=== PATIENT | female | born 1985 | race Hispanic/Latino ===

== ENCOUNTER 2018-08-12 13:30 | Emergency (ER) | payer MEDICAID ==
[2018-08-12 13:57] VITALS: BMI 37.8
[2018-08-12 14:02] VITALS: RESP 18; TEMP 98.3
[2018-08-12] MEDS ORDERED: Sodium Chloride 0.9% 1,000 ML IV STA (14:51)
[2018-08-12] MEDS ORDERED: Albuterol 0.083% Inhal Sol (2.5 mg/3 mL) UD INH STA (14:53)
[2018-08-12] MEDS ORDERED: DiphenhydrAMINE 50 mg/ml Inj IVP STA (14:54)
[2018-08-12 15:52] VITALS: BP 131/79; PULSE 86; O2SAT 99
--- NOTE | 2018-08-12 15:54 | ED PDOC ---
Arrival/HPI - General Chief Complaint: Allergic Reaction Historian: Patient - History of Present Illness Narrative History of Present Illness (Text): 08/12/18 14:50 32 year old female, whose past medical history includes chronic sinusitis, who was brought into the ER by EMS complaining of weakness, palpitations, and hives after getting the Haldol injection on 08/07/18, onset of symptoms noted as 2 days ago. Patient states she was on the pill before, but it made her feel groggy so she spoke to her Pyschiatrist and was given a shot of 100mg of Haldol. Patient reports she started feeling very weak about 2 days ago due to the shot and also started getting hives all over her arms, legs, stomach and back. Patient notes she did not take Benadryl for the hives since she was scared to become more tired and weak than she already was. Patient noted she was not able to swallow her spit yesterday, and this is the same thing that happens to her for her allergic reaction to strawberries. Patient notes she feels very tired, restless, lethargic, mild wheezes, and notes palpitations when laying down on her back. Patient denies any other complaints. Patient is a non-smoker. PMD: Debra Weber Time/Duration: Other (Pt notes symptoms started 2 days ago ) Symptom Onset: Sudden Symptom Course: Unchanged Activities at Onset: Light Past Medical History - Provider Review Nursing Documentation Reviewed: Yes - Past History Past History: No Previous - Infectious Disease Hx of Infectious Diseases: None - Tetanus Immunization Tetanus Immunization: Unknown - Past Medical History Past Medical History: Non-Contributing - Cardiac Hx Cardiac Disorders: No Hx Angina: No Hx Cardiac Arrhythmia: No Hx Circulatory Problems: No Hx Congestive Heart Failure: No Hx Heart Murmur: No Hx Heart Transplant: No Hx Hypertension: No Hx Internal Defibrillator: No Hx Mitral Valve Prolapse: No Hx Pacemaker: No Hx Peripheral Edema: No Hx Peripheral Vascular Disease: No - Pulmonary Hx Respiratory Disorders: No Hx Asthma: No Hx Bronchitis: No Hx Chronic Obstructive Pulmonary Disease (COPD): No Hx Emphysema: No Hx Pneumonia: No Hx Respiratory Aspiration: No Hx Respiratory Tract Infection: No Hx Sleep Apnea: No Hx Tuberculosis: No - Neurological Hx Neurological Disorder: No Hx Alzheimer's Disease: No HX Cerebrovascular Accident: No Hx Dizziness: No Hx Meningitis: No Hx Migraine: No Hx Parkinson's Disease: No Hx Seizures: No Hx Transient Ischemic Attacks (TIA): No - HEENT Hx HEENT Disorder: No Hx Blind: No Hx Cataracts: No Hx Deafness: No Hx Difficulty Chewing: No Hx Epistaxis: No Hx Glaucoma: No Hx Macular Degeneration: No - Renal Hx Renal Disorder: No Hx Dialysis: No Hx Kidney Stones: No Hx Neurogenic Bladder: No Hx Pyelonephritis: No Hx Renal Cancer: No Hx Renal Failure: No - Endocrine/Metabolic Hx Endocrine Disorders: No Hx Adrenal Cancer: No Hx Diabetes Insipidus: No Hx Diabetes Mellitus Type 1: No Hx Diabetes Mellitus Type 2: No Hx Hyperthyroidism: No Hx Hypothyroidism: No Hx Systemic Lupus Erythematosus: No - Hematological/Oncological Hx Blood Disorders: No Hx AIDS: No Hx Anemia: No Hx Cancer: No Hx Chemotherapy: No Hx Cirrhosis: No Hx Hemophilia: No Hx Hepatitis A: No Hx Hepatitis B: No Hx Hepatitis C: No Hx Metastasis: No Hx Shingles: No Hx Sickle Cell Disease: No Hx Unexplained Bleeding: No - Integumentary Hx Dermatological Disorder: No Hx Basal Cell Carcinoma: No Hx Eczema: No Hx Melanoma: No Hx Psoriasis: No Hx Squamous Cell Carcinoma: No - Musculoskeletal/Rheumatological Hx Musculoskeletal Disorders: No Hx Arthritis: No Hx Back Pain: No Hx Degenerative Joint Disease: No Hx Falls: No Hx Fractures: No Hx Gout: No Hx Herniated Disk: No Hx Myasthenia Gravis: No Hx Osteoarthritis: No Hx Osteomyelitis: No Hx Osteoporosis: No Hx Rhabdomyolysis: No Hx Spinal Stenosis: No Hx Unsteady Gait: No - Gastrointestinal Hx Gastrointestinal Disorders: No Hx Colostomy: No Hx Crohn's Disease: No Hx Diverticulitis: No Hx Gall Bladder Disease: No Hx Gastroesophageal Reflux: No Hx Gastrointestinal Ulcer: No Hx Ileostomy: No Hx Liver Failure: No Hx Pancreatitis: No HX Swallowing Problems: No - Genitourinary/Gynecological Hx Genitourinary Disorders: No Hx Hematuria: No Hx Incontinence: No Hx Prostate Problems: No Hx Sexually Transmitted Diseases: No Hx Urinary Tract Infection: No - Psychiatric Hx Psychophysiologic Disorder: No Hx Anxiety: Yes Hx Bipolar Disorder: Yes Hx Depression: Yes Hx Emotional Abuse: No Hx Hallucinations: No Hx Panic Disorder: No Hx Post Traumatic Stress Disorder: No Hx Psychosis: No Hx Physical Abuse: No Hx Schizophrenia: Yes Hx Sexual Abuse: No Hx Substance Use: No - Past Surgical History Past Surgical History: Non-Contributing - Surgical History Hx Amputation: No Hx Appendectomy: No Hx Cardiac Catheterization: No Hx Cholecystectomy: No Hx Coronary Stent: No Hx Gastric Bypass Surgery: No Hx Hysterectomy: No Hx Joint Replacement: No Hx Kidney Transplant: No Hx Liver Transplant: No Hx Mastectomy: No Hx Musculoskeletal Surgery: No Hx Open Heart Surgery: No Hx Orthopedic Surgery: No Hx Splenectomy: No Hx Valve Replacement: No - Anesthesia Hx Anesthesia: No Hx Anesthesia Reactions: No Hx Malignant Hyperthermia: No - Suicidal Assessment Feels Threatened In Home Enviroment: No Family/Social History - Physician Review Nursing Documentation Reviewed: Yes Family/Social History: No Known Family HX Smoking Status: Never Smoked Hx Alcohol Use: Yes Hx Substance Use: No Hx Substance Use Treatment: No Allergies/Home Meds Allergies/Adverse Reactions: Allergies strawberry Allergy (Intermediate, Verified 02/17/16 15:40) RASH divalproex sodium [From Depakote] Adverse Reaction (Verified 08/12/18 13:58) RASH pt gets violent Home Medications: Home Meds Medication Instructions Recorded Confirmed Risperidone [Risperdal] 2 mg PO DAILY 04/17/12 04/17/12 Trazodone Hydrochloride [Trazodone 150 mg PO HS 04/17/12 02/17/16 HCl] Divalproex [Depakote] 500 mg PO BID 09/03/12 09/03/12 Fluoxetine Hydrochloride [Prozac] 10 mg PO DAILY 09/03/12 02/17/16 Clonazepam [Klonopin] 0.5 mg PO PRN PRN 10/02/12 02/17/16 Review of Systems - Physician Review All systems were reviewed & negative as marked: Yes - Review of Systems Constitutional: Fatigue. absent: Normal Respiratory: Wheezing (pt notes mild wheezes). absent: Normal Cardiovascular: Palpitations. absent: Normal Skin: Other (Patient notes hives on arms, legs, back, and stomach). absent: Normal Physical Exam Vital Signs Reviewed: Yes Vital Signs Temp Pulse Resp BP Pulse Ox 08/12/18 14:01 98.3 F 101 H 18 133/83 98 Temperature: Afebrile Blood Pressure: Normal Pulse: Tachycardic Respiratory Rate: Normal Appearance: Positive for: Well-Appearing, Non-Toxic Pain Distress: None Mental Status: Positive for: Alert and Oriented X 3 - Systems Exam Head: Present: Atraumatic, Normocephalic Pupils: Present: PERRL Extroacular Muscles: Present: EOMI Conjunctiva: Present: Normal Mouth: Present: Moist Mucous Membranes Neck: Present: Normal Range of Motion Respiratory/Chest: No: Wheezes (No evidence of expiratory wheezes noted ) Cardiovascular: No: Tachycardic Abdomen: No: Tenderness, Distention, Peritoneal Signs Back: Present: Normal Inspection Upper Extremity: Present: Normal Inspection. No: Cyanosis, Edema Lower Extremity: Present: Normal Inspection. No: Edema Neurological: Present: Speech Normal (able to speak in full sentences ) Skin: Present: Warm, Dry, Normal Color, Other (No hives noted). No: Rashes Psychiatric: Present: Alert, Oriented x 3, Normal Insight, Normal Concentration Medical Decision Making ED Course and Treatment: 08/12/18 14:50 Impression: 32 year old female presents to the ED complaining of weakness, palpitations, and hives after getting the Haldol injection on 08/07/18. Plan: -- EKG -- Albuterol -- Benadryl -- SOLU-Medrol -- IV fluids Progress notes: - EKG Interpretation EKG Interpretation (Text): 08/12/2018 14:09 EKG shows NSR at [address] elevation with no prior comparison. Interpreted by me. Interpreted by ED Physician: Yes Type: 12 lead EKG - Medication Orders Current Medication Orders: Sodium Chloride (Sodium Chloride 0.9%) 1,000 mls @ 999 mls/hr IV .Q1H1M STA Stop: 08/12/18 15:51 Discontinued Medications Albuterol Sulfate (Albuterol 0.083% Inhal Aileen (2.5 Mg/3 Ml) Ud) 2.5 mg INH STAT STA Stop: 08/12/18 14:54 Diphenhydramine HCl (Benadryl) 25 mg IVP STAT STA Stop: 08/12/18 14:55 Methylprednisolone (Solu-Medrol) 125 mg IVP STAT STA Stop: 08/12/18 14:54 - Scribe Statement The provider has reviewed the documentation as recorded by the Scribe Etta Walker All medical record entries made by the Scribe were at my direction and personally dictated by me. I have reviewed the chart and agree that the record accurately reflects my personal performance of the history, physical exam, medical decision making, and the department course for this patient. I have also personally directed, reviewed, and agree with the discharge instructions and disposition. Disposition/Present on Arrival - Present on Arrival Any Indicators Present on Arrival: No History of DVT/PE: No History of Uncontrolled Diabetes: No Urinary Catheter: No History of Decub. Ulcer: No History Surgical Site Infection Following: None - Disposition Have Diagnosis and Disposition been Completed?: Yes Diagnosis: Allergic reaction, Drug allergy Disposition: HOME/ ROUTINE Disposition Time: 15:50 Patient Plan: Discharge Patient Problems: Current Active Problems Problem Status Onset Allergic reaction Acute Drug allergy Acute Condition: STABLE Discharge Instructions (ExitCare): Allergy Skin Testing, Drug Allergy Print Language: KHMER Additional Instructions: All medical record entries made by the Scribe were at my direction and personally dictated by me. I have reviewed the chart and agree that the record accurately reflects my personal performance of the history, physical exam, medical decision making, and the department course for this patient. I have also personally directed, reviewed, and agree with the discharge instructions and disposition. Please monitor for any hives, throat itchiness, difficulty breathing or facial swelling and return to your Emergency department. Please follow up with your PCP in 3-5 days. Prescriptions: DiphenhydrAMINE [Benadryl] 25 mg PO Q6H #12 cap Famotidine [Pepcid] 40 mg PO DAILY #10 tablet Methylprednisolone [Medrol Dose Pack (21 tabs)] 4 mg PO DAILY #21 mg Referrals: Ingrid Polanco MD [Primary Care Provider] - Follow up with primary Forms: Veeqo (Danish), WORK NOTE
--- NOTE | 2018-08-13 11:07 | CARD ---
APPROVED REPORT Date of service: 08/12/2018 EKG Measurement Heart [id number] <Conclusion> Normal sinus rhythm Cannot rule out Anterior infarct, age undetermined, possible lead misplacement Abnormal ECG
== END 2018-08-12 15:50 | disposition home or self-care (01) ==
LOC: ED 13:30
DX: L50.9 Urticaria, unspecified (principal); T43.4X5A Adverse effect of butyrophenone and thiothixene neuroleptics, initial encounter

== ENCOUNTER 2018-09-07 13:51 | Emergency (ER) | payer MEDICAID ==
[2018-09-07 13:59] VITALS: BMI 36.4
--- NOTE | 2018-09-07 14:04 | ED PDOC ---
Arrival/HPI - General Time Seen by Provider: 09/07/18 13:53 Historian: Patient - History of Present Illness Narrative History of Present Illness (Text): 09/07/18 14:00 A 32 year old female, with no significant past medical history, presents to the emergency department complaining of right ankle pain s/p trip and fall. Patient reports she was fooling around going upstairs, and suddenly fell and injured right ankle, "Turing it inside" Patient denies any head trauma, or any other complaints at this time. 09/07/18 14:43 Past Medical History - Provider Review Nursing Documentation Reviewed: Yes - Past History Past History: No Previous - Infectious Disease Hx of Infectious Diseases: None - Tetanus Immunization Tetanus Immunization: Unknown - Reproductive Currently : Unknown - Past Medical History Past Medical History: Non-Contributing - Cardiac Hx Cardiac Disorders: No Hx Angina: No Hx Cardiac Arrhythmia: No Hx Circulatory Problems: No Hx Congestive Heart Failure: No Hx Heart Murmur: No Hx Heart Transplant: No Hx Hypertension: No Hx Internal Defibrillator: No Hx Mitral Valve Prolapse: No Hx Pacemaker: No Hx Peripheral Edema: No Hx Peripheral Vascular Disease: No - Pulmonary Hx Respiratory Disorders: No Hx Asthma: No Hx Bronchitis: No Hx Chronic Obstructive Pulmonary Disease (COPD): No Hx Emphysema: No Hx Pneumonia: No Hx Respiratory Aspiration: No Hx Respiratory Tract Infection: No Hx Sleep Apnea: No Hx Tuberculosis: No - Neurological Hx Neurological Disorder: No Hx Alzheimer's Disease: No HX Cerebrovascular Accident: No Hx Dizziness: No Hx Meningitis: No Hx Migraine: No Hx Parkinson's Disease: No Hx Seizures: No Hx Transient Ischemic Attacks (TIA): No - HEENT Hx HEENT Disorder: No Hx Blind: No Hx Cataracts: No Hx Deafness: No Hx Difficulty Chewing: No Hx Epistaxis: No Hx Glaucoma: No Hx Macular Degeneration: No - Renal Hx Renal Disorder: No Hx Dialysis: No Hx Kidney Stones: No Hx Neurogenic Bladder: No Hx Pyelonephritis: No Hx Renal Cancer: No Hx Renal Failure: No - Endocrine/Metabolic Hx Endocrine Disorders: No Hx Adrenal Cancer: No Hx Diabetes Insipidus: No Hx Diabetes Mellitus Type 1: No Hx Diabetes Mellitus Type 2: No Hx Hyperthyroidism: No Hx Hypothyroidism: No Hx Systemic Lupus Erythematosus: No - Hematological/Oncological Hx Blood Disorders: No Hx AIDS: No Hx Anemia: No Hx Cancer: No Hx Chemotherapy: No Hx Cirrhosis: No Hx Hemophilia: No Hx Hepatitis A: No Hx Hepatitis B: No Hx Hepatitis C: No Hx Metastasis: No Hx Shingles: No Hx Sickle Cell Disease: No Hx Unexplained Bleeding: No - Integumentary Hx Dermatological Disorder: No Hx Basal Cell Carcinoma: No Hx Eczema: No Hx Melanoma: No Hx Psoriasis: No Hx Squamous Cell Carcinoma: No - Musculoskeletal/Rheumatological Hx Musculoskeletal Disorders: No Hx Arthritis: No Hx Back Pain: No Hx Degenerative Joint Disease: No Hx Falls: No Hx Fractures: No Hx Gout: No Hx Herniated Disk: No Hx Myasthenia Gravis: No Hx Osteoarthritis: No Hx Osteomyelitis: No Hx Osteoporosis: No Hx Rhabdomyolysis: No Hx Spinal Stenosis: No Hx Unsteady Gait: No - Gastrointestinal Hx Gastrointestinal Disorders: No Hx Colostomy: No Hx Crohn's Disease: No Hx Diverticulitis: No Hx Gall Bladder Disease: No Hx Gastroesophageal Reflux: No Hx Gastrointestinal Ulcer: No Hx Ileostomy: No Hx Liver Failure: No Hx Pancreatitis: No HX Swallowing Problems: No - Genitourinary/Gynecological Hx Genitourinary Disorders: No Hx Hematuria: No Hx Incontinence: No Hx Prostate Problems: No Hx Sexually Transmitted Diseases: No Hx Urinary Tract Infection: No - Psychiatric Hx Psychophysiologic Disorder: No Hx Anxiety: Yes Hx Bipolar Disorder: Yes Hx Depression: Yes Hx Emotional Abuse: No Hx Hallucinations: No Hx Panic Disorder: No Hx Post Traumatic Stress Disorder: No Hx Psychosis: No Hx Physical Abuse: No Hx Schizophrenia: Yes Hx Sexual Abuse: No Hx Substance Use: No - Past Surgical History Past Surgical History: Non-Contributing - Surgical History Hx Amputation: No Hx Appendectomy: No Hx Cardiac Catheterization: No Hx Cholecystectomy: No Hx Coronary Stent: No Hx Gastric Bypass Surgery: No Hx Hysterectomy: No Hx Joint Replacement: No Hx Kidney Transplant: No Hx Liver Transplant: No Hx Mastectomy: No Hx Musculoskeletal Surgery: No Hx Open Heart Surgery: No Hx Orthopedic Surgery: No Hx Splenectomy: No Hx Valve Replacement: No - Anesthesia Hx Anesthesia: No Hx Anesthesia Reactions: No Hx Malignant Hyperthermia: No - Suicidal Assessment Feels Threatened In Home Enviroment: No Family/Social History - Physician Review Nursing Documentation Reviewed: Yes Family/Social History: No Known Family HX Smoking Status: Never Smoked Hx Alcohol Use: Yes Hx Substance Use: No Hx Substance Use Treatment: No Allergies/Home Meds Allergies/Adverse Reactions: Allergies strawberry Allergy (Intermediate, Verified 07/21/16 15:40) RASH divalproex sodium [From Depakote] Adverse Reaction (Verified 08/12/18 13:58) RASH pt gets violent Home Medications: Home Meds Medication Instructions Recorded Confirmed Risperidone [Risperdal] 2 mg PO DAILY 04/17/12 04/17/12 Trazodone Hydrochloride [Trazodone 150 mg PO HS 04/17/12 02/17/16 HCl] Divalproex [Depakote] 500 mg PO BID 09/03/12 09/03/12 Fluoxetine Hydrochloride [Prozac] 10 mg PO DAILY 09/03/12 02/17/16 Clonazepam [Klonopin] 0.5 mg PO PRN PRN 10/02/12 02/17/16 Review of Systems - Physician Review All systems were reviewed & negative as marked: Yes - Review of Systems Musculoskeletal: Other (right ankle pain s/p trip and fall) Physical Exam Pain Distress: None Mental Status: Positive for: Alert and Oriented X 3 - Systems Exam Head: Present: Atraumatic, Normocephalic Pupils: Present: PERRL Extroacular Muscles: Present: EOMI Conjunctiva: Present: Normal Back: Present: Normal Inspection Upper Extremity: Present: Normal Inspection. No: Cyanosis, Edema Lower Extremity: Present: Tenderness (right ankle), Swelling (right ankle) Neurological: Present: GCS=15, CN II-XII Intact, Speech Normal Skin: Present: Warm, Dry, Normal Color. No: Rashes Psychiatric: Present: Alert, Oriented x 3, Normal Insight, Normal Concentration Medical Decision Making ED Course and Treatment: 09/07/18 14:03 Impression: 32 year old female with right ankle pain s/p trip and fall. 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 splint and hard shoe given, pt declines crutches. - Scribe Statement The provider has reviewed the documentation as recorded by the Liseth Ruth Provider Scribe Attestation: All medical record entries made by the Scribefrain were at my direction and personally dictated by me. I have reviewed the chart and agree that the record accurately reflects my personal performance of the history, physical exam, medical decision making, and the department course for this patient. I have also personally directed, reviewed, and agree with the discharge instructions and disposition. Disposition/Present on Arrival - Present on Arrival Any Indicators Present on Arrival: No History of DVT/PE: No History of Uncontrolled Diabetes: No Urinary Catheter: No History Surgical Site Infection Following: None - Disposition Have Diagnosis and Disposition been Completed?: Yes Diagnosis: Ankle sprain Disposition: HOME/ ROUTINE Disposition Time: 14:00 Patient Problems: Current Active Problems Problem Status Onset Ankle sprain Acute Condition: STABLE Discharge Instructions (ExitCare): Ankle Sprain (DC) Additional Instructions: return to any er with worsening symptoms or concerns. Prescriptions: RX: Naproxen 500 mg PO BID PRN #14 tablet.dr DANYA Reason: Pain, Mild (1-3) Referrals: [facility]iatry [facility] [Outside] - Follow up with primary Ingrid Polanco MD [Primary Care Provider] - Follow up with primary Joshua Lynn MD [Staff Provider] - Follow up with primary Forms: Pocket Change Card (Tajik)
[2018-09-07 14:34] VITALS: BP 108/65; PULSE 82; RESP 17; TEMP 97.7; O2SAT 99
--- NOTE | 2018-09-07 14:41 | RAD ---
Date of service: 09/07/2018 PROCEDURE: Right Ankle Radiographs. HISTORY: trauma COMPARISON: None available. FINDINGS: BONES: Normal. No fracture. JOINTS: Normal. No osteoarthritis. Ankle mortise maintained. Talar dome intact SOFT TISSUES: Normal. OTHER FINDINGS: None. IMPRESSION: Normal right ankle radiographs.
--- NOTE | 2018-09-07 14:42 | RAD ---
Date of service: 09/07/2018 PROCEDURE: Right Foot Radiographs. HISTORY: trauma COMPARISON: None. FINDINGS: BONES: Normal. No fracture. JOINTS: Normal. SOFT TISSUES: Normal. OTHER FINDINGS: None. IMPRESSION: Normal right foot radiographs.
== END 2018-09-07 15:00 | disposition home or self-care (01) ==
LOC: ED 13:51
DX: S93.401A Sprain of unspecified ligament of right ankle, initial encounter (principal); W01.0XXA Fall on same level from slipping, tripping and stumbling without subsequent striking against object, initial encounter

== ENCOUNTER 2018-10-18 20:44 | Inpatient (IN) | payer MEDICAID ==
[2018-10-18 20:51] VITALS: BMI 37.4
--- NOTE | 2018-10-18 21:04 | ED PDOC ---
Arrival/HPI - General Chief Complaint: Chest Pain Time Seen by Provider: 10/18/18 20:46 Historian: Patient - History of Present Illness Narrative History of Present Illness (Text): 32 y/o female with PMH of anxiety presents to the ED c/o chest pain that began this morning. Describes pain as a heaviness that begins in the left side of the chest and radiates into her jaw and down her left arm. Associated SOB. Pt has a family history of SC and CAD. Did not take ASA today. Denies drug use, fevers, chills, headache, neck pain, nausea, vomiting, abdominal pain, back pain, cough, congestion, numbness, weakness, paresthesias, or any other associated symptoms. Past Medical History - Provider Review Nursing Documentation Reviewed: Yes - Past History Past History: No Previous - Infectious Disease Hx of Infectious Diseases: None - Tetanus Immunization Tetanus Immunization: Unknown - Past Medical History Past Medical History: Non-Contributing - Cardiac Hx Cardiac Disorders: No Hx Angina: No Hx Cardiac Arrhythmia: No Hx Circulatory Problems: No Hx Congestive Heart Failure: No Hx Heart Murmur: No Hx Heart Transplant: No Hx Hypertension: No Hx Internal Defibrillator: No Hx Mitral Valve Prolapse: No Hx Pacemaker: No Hx Peripheral Edema: No Hx Peripheral Vascular Disease: No - Pulmonary Hx Respiratory Disorders: No Hx Asthma: No Hx Bronchitis: No Hx Chronic Obstructive Pulmonary Disease (COPD): No Hx Emphysema: No Hx Pneumonia: No Hx Respiratory Aspiration: No Hx Respiratory Tract Infection: No Hx Sleep Apnea: No Hx Tuberculosis: No - Neurological Hx Neurological Disorder: No Hx Alzheimer's Disease: No HX Cerebrovascular Accident: No Hx Dizziness: No Hx Meningitis: No Hx Migraine: No Hx Parkinson's Disease: No Hx Seizures: No Hx Transient Ischemic Attacks (TIA): No - HEENT Hx HEENT Disorder: No Hx Blind: No Hx Cataracts: No Hx Deafness: No Hx Difficulty Chewing: No Hx Epistaxis: No Hx Glaucoma: No Hx Macular Degeneration: No - Renal Hx Renal Disorder: No Hx Dialysis: No Hx Kidney Stones: No Hx Neurogenic Bladder: No Hx Pyelonephritis: No Hx Renal Cancer: No Hx Renal Failure: No - Endocrine/Metabolic Hx Endocrine Disorders: No Hx Adrenal Cancer: No Hx Diabetes Insipidus: No Hx Diabetes Mellitus Type 1: No Hx Diabetes Mellitus Type 2: No Hx Hyperthyroidism: No Hx Hypothyroidism: No Hx Systemic Lupus Erythematosus: No - Hematological/Oncological Hx Blood Disorders: No Hx AIDS: No Hx Anemia: No Hx Cancer: No Hx Chemotherapy: No Hx Cirrhosis: No Hx Hemophilia: No Hx Hepatitis A: No Hx Hepatitis B: No Hx Hepatitis C: No Hx Metastasis: No Hx Shingles: No Hx Sickle Cell Disease: No Hx Unexplained Bleeding: No - Integumentary Hx Dermatological Disorder: No Hx Basal Cell Carcinoma: No Hx Eczema: No Hx Melanoma: No Hx Psoriasis: No Hx Squamous Cell Carcinoma: No - Musculoskeletal/Rheumatological Hx Musculoskeletal Disorders: No Hx Arthritis: No Hx Back Pain: No Hx Degenerative Joint Disease: No Hx Falls: No Hx Fractures: No Hx Gout: No Hx Herniated Disk: No Hx Myasthenia Gravis: No Hx Osteoarthritis: No Hx Osteomyelitis: No Hx Osteoporosis: No Hx Rhabdomyolysis: No Hx Spinal Stenosis: No Hx Unsteady Gait: No - Gastrointestinal Hx Gastrointestinal Disorders: No Hx Colostomy: No Hx Crohn's Disease: No Hx Diverticulitis: No Hx Gall Bladder Disease: No Hx Gastroesophageal Reflux: No Hx Gastrointestinal Ulcer: No Hx Ileostomy: No Hx Liver Failure: No Hx Pancreatitis: No HX Swallowing Problems: No - Genitourinary/Gynecological Hx Genitourinary Disorders: No Hx Hematuria: No Hx Incontinence: No Hx Prostate Problems: No Hx Sexually Transmitted Diseases: No Hx Urinary Tract Infection: No - Psychiatric Hx Psychophysiologic Disorder: No Hx Anxiety: Yes Hx Bipolar Disorder: Yes Hx Depression: Yes Hx Emotional Abuse: No Hx Hallucinations: No Hx Panic Disorder: No Hx Post Traumatic Stress Disorder: No Hx Psychosis: No Hx Physical Abuse: No Hx Schizophrenia: Yes Hx Sexual Abuse: No Hx Substance Use: No - Past Surgical History Past Surgical History: Non-Contributing - Surgical History Hx Amputation: No Hx Appendectomy: No Hx Cardiac Catheterization: No Hx Cholecystectomy: No Hx Coronary Stent: No Hx Gastric Bypass Surgery: No Hx Hysterectomy: No Hx Joint Replacement: No Hx Kidney Transplant: No Hx Liver Transplant: No Hx Mastectomy: No Hx Musculoskeletal Surgery: No Hx Open Heart Surgery: No Hx Orthopedic Surgery: No Hx Splenectomy: No Hx Valve Replacement: No - Anesthesia Hx Anesthesia: No Hx Anesthesia Reactions: No Hx Malignant Hyperthermia: No - Suicidal Assessment Feels Threatened In Home Enviroment: No Family/Social History - Physician Review Nursing Documentation Reviewed: Yes Family/Social History: CAD/SC Smoking Status: Never Smoked Hx Alcohol Use: Yes Hx Substance Use: No Hx Substance Use Treatment: No Allergies/Home Meds Allergies/Adverse Reactions: Allergies strawberry Allergy (Intermediate, Verified 10/18/18 20:51) RASH divalproex sodium [From Depakote] Adverse Reaction (Verified 10/18/18 20:51) RASH pt gets violent Review of Systems - Review of Systems Constitutional: Normal. absent: Fatigue, Fevers Eyes: Normal. absent: Vision Changes ENT: Normal. absent: Sore Throat, Sinus Congestion Respiratory: SOB. absent: Cough, Sputum Cardiovascular: Chest Pain. absent: Palpitations Gastrointestinal: Normal. absent: Abdominal Pain, Nausea, Vomiting Genitourinary Female: Normal. absent: Dysuria, Frequency Musculoskeletal: Normal. absent: Arthralgias, Back Pain, Neck Pain Skin: Normal. absent: Rash Neurological: Normal. absent: Headache, Dizziness Endocrine: Normal Hemo/Lymphatic: Normal Psychiatric: Anxiety Physical Exam Vital Signs Reviewed: Yes Temperature: Afebrile Blood Pressure: Normal Pulse: Regular Respiratory Rate: Normal Appearance: Positive for: Well-Appearing, Non-Toxic, Comfortable Pain Distress: None Mental Status: Positive for: Alert and Oriented X 3 - Systems Exam Head: Present: Atraumatic, Normocephalic Pupils: Present: PERRL Extroacular Muscles: Present: EOMI Conjunctiva: Present: Normal Mouth: Present: Moist Mucous Membranes Neck: Present: Normal Range of Motion. No: Meningeal Signs Respiratory/Chest: Present: Clear to Auscultation, Good Air Exchange. No: Respiratory Distress, Accessory Muscle Use Cardiovascular: Present: Regular Rate and Rhythm, Normal S1, S2. No: Murmurs Back: Present: Normal Inspection. No: CVA Tenderness Upper Extremity: Present: Normal Inspection, Normal ROM, NORMAL PULSES, Neurovascularly Intact, Capillary Refill < 2s. No: Cyanosis, Edema, Temperature Abnormalties Lower Extremity: Present: Normal Inspection, NORMAL PULSES, Normal ROM, Neurovascularly Intact, Capillary Refill < 2 s. No: Edema, Temperature Abnormalties Neurological: Present: GCS=15, CN II-XII Intact, Speech Normal, Motor Func Grossly Intact, Normal Sensory Function, Gait Normal Skin: Present: Warm, Dry, Normal Color. No: Rashes Psychiatric: Present: Alert, Oriented x 3, Normal Insight, Normal Concentration, Normal Affect, Normal Mood Medical Decision Making ED Course and Treatment: Initial Plan: * CBC, CMP * Coags * Troponin * Dimer * UDS * EKG * CXR * IVF [place] reviewed, unremarkable. Dimer and troponin negative CXR shows no active disease EKG sinus tach at 100, no STEMI UDS positive for cocaine, pt denies drug use 22:45 Pt continues to have symptoms, will seek inpatient observation to r/o ACS. 23:[address] Grimes, who accepted patient for inpatient observation with diagnosis of chest pain. Pt updated with change in disposition. Pt is resting comfortably in stretcher with stable vital signs at this time. Disposition/Present on Arrival - Present on Arrival Any Indicators Present on Arrival: No History of DVT/PE: No History of Uncontrolled Diabetes: No Urinary Catheter: No History of Decub. Ulcer: No History Surgical Site Infection Following: None - Disposition Have Diagnosis and Disposition been Completed?: Yes Diagnosis: Chest pain Disposition: HOSPITALIZED Disposition Time: 23:00 Patient Plan: Observation Patient Problems: Current Active Problems Problem Status Onset Chest pain Acute Condition: STABLE
[2018-10-18] MEDS ORDERED: Sodium Chloride 0.9% 1,000 ML IV STA (21:05)
[2018-10-18 21:18] LABS: BASO # 0.01 K/mm3 (0.0-2.0); BASO % 0.1 % (0.0-3.0); EOS # 0.3 (0.0-0.7); EOS % 3.1 % (1.5-5.0); HEMOGLOBIN 14.7 g/dL (12.0-16.0); LYMPH # 2.4 (1.2-3.4); LYMPH % 28.2 % (22.0-35.0); MEAN CELL VOLUME 88.2 fl (80.0-105.0); MEAN CORPUSCULAR HEMOGLOBIN 29.3 pg (25.0-35.0); MEAN CORPUSCULAR HGB CONC 33.3 g/dl (31.0-37.0); MEAN PLATELET VOLUME 10.1 fl (7.0-11.0); MONO # 0.4 (0.1-0.6); MONO % 4.6 % (1.0-6.0); RBC 5.01 10^6/uL (3.5-6.1); RED CELL DISTRIBUTION WIDTH 13.3 % (11.5-14.5); WHITE BLOOD COUNT 8.5 10^3/uL (4.5-11.0)
[2018-10-18 21:27] LABS: INR 1.04; PARTIAL THROMBOPLASTIN TIME 32.1 Seconds (26.9-38.3); PROTHROMBIN TIME 11.5 SECONDS (9.4-12.5)
[2018-10-18 21:29] LABS: ALB/GLOB RATIO 1.1 (1.1-1.8); ALBUMIN 4.6 g/dL (3.0-4.8); ALT/SGPT 32 U/L (7-56); AST/SGOT 40 U/L (14-36); BLOOD UREA NITROGEN 15 mg/dL (7-21); CALCIUM 9.4 mg/dL (8.4-10.5); GFR NON-AFRICAN AMERICAN > 60
[2018-10-18 21:40] LABS: TROPONIN I < 0.01 ng/mL
[2018-10-18 21:54] LABS: URINE BILIRUBIN NEGATIVE (NEGATIVE); URINE BLOOD NEGATIVE (NEGATIVE); URINE GLUCOSE (UA) NEGATIVE (NEGATIVE); URINE LEUKOCYTE ESTERASE NEGATIVE Leu/uL (NEGATIVE); URINE PROTEIN TRACE mg/dL (<30 mg/dL); URINE UROBILINOGEN 0.2 E.U./dL (<1 E.U./dL)
[2018-10-18 21:55] LABS: URINE APPEARANCE CLEAR (CLEAR); URINE COLOR YELLOW (YELLOW)
[2018-10-18 21:56] LABS: HCG,QUALITATIVE URINE NEGATIVE (NEGATIVE)
[2018-10-18 22:23] LABS: BARBITURATES, UR NEGATIVE (NEGATIVE); BENZODIAZEPINES, UR NEGATIVE (NEGATIVE); OPIATES, UR NEGATIVE (NEGATIVE); PHENCYCLIDINE, UR NEGATIVE (NEGATIVE)
[2018-10-18 23:44] LABS: HDL CHOLESTEROL 36 mg/dL (29-60)
[2018-10-18 23:55] LABS: LDL CHOLESTEROL 138 mg/dL (0-129)
[2018-10-19 00:01] LABS: FREE T4 1.31 ng/dL (0.78-2.19)
--- NOTE | 2018-10-19 00:09 | CP.PCM.HP ---
<Danielle Ernst - Last Filed: 10/19/18 00:10> History of Present Illness - History of Present Illness History of Present Illness: Resident History & Physical for Hospitalist Service Patient is a 32 year old female with past medical history of obesity, marijuana use, depression, anxiety presenting with chief complaint of chest pain that began today. Chest pain is located in mid anterior chest wall, described as a heavy pressure like sensation associated with shortness of breath. She states the pain began at rest and remained constant regardless of exertion. Patient also has associated nausea and neck/jaw soreness. Denies fevers, chills, headache, dizziness, vomiting, abdominal pain, diarrhea, dysuria. PMH: obesity, depression, anxiety PSH: denies SHx: denies alcohol or tobacco use, smokes marijuana Allergies: strawberry, divalproex sodium PMD: Dr. Ingrid Polanco Present on Admission - Present on Admission Any Indicators Present on Admission: No Review of Systems - Review of Systems All systems: reviewed and no additional remarkable complaints except (as stated in HPI) Past Patient History - Infectious Disease Hx of Infectious Diseases: None - Tetanus Immunizations Tetanus Immunization: Unknown - Past Social History Smoking Status: Never Smoked - CARDIAC Hx Cardiac Disorders: No Hx Angina: No Hx Cardia Arrhythmia: No Hx Circulatory Problems: No Hx Congestive Heart Failure: No Hx Heart Murmur: No Hx Heart Transplant: No Hx Hypertension: No Hx Internal Defibrillator: No Hx Mitral Valve Prolapse: No Hx Pacemaker: No Hx Peripheral Edema: No Hx Peripheral Vascular Disease: No - PULMONARY Hx Respiratory Disorders: No Hx Asthma: No Hx Bronchitis: No Hx Chronic Obstructive Pulmonary Disease (COPD): No Hx Emphysema: No Hx Pneumonia: No Hx Respiratory Aspiration: No Hx Respiratory Tract Infection: No Hx Sleep Apnea: No Hx Tuberculosis: No - NEUROLOGICAL Hx Neurological Disorder: No Hx Alzheimer's Disease: No HX Cerebrovascular Accident: No Hx Dizziness: No Hx Meningitis: No Hx Migraine: No Hx Parkinson's Disease: No Hx Seizures: No Hx Transient Ischemic Attacks (TIA): No - HEENT Hx HEENT Problems: No Hx Blind: No Hx Cataracts: No Hx Deafness: No Hx Difficulty Chewing: No Hx Epistaxis: No Hx Glaucoma: No Hx Macular Degeneration: No - RENAL Hx Chronic Kidney Disease: No Hx Dialysis: No Hx Kidney Stones: No Hx Neurogenic Bladder: No Hx Pyelonephritis: No Hx Renal (Kidney) Cancer: No Hx Renal Failure: No - ENDOCRINE/METABOLIC Hx Endocrine Disorders: No Hx Adrenal Cancer: No Hx Diabetes Insipidus: No Hx Diabetes Mellitus Type 1: No Hx Diabetes Mellitus Type 2: No Hx Hyperthyroidism: No Hx Hypothyroidism: No Hx Systemic Lupus Erythematosus: No - HEMATOLOGICAL/ONCOLOGICAL Hx Blood Disorders: No Hx AIDS: No Hx Anemia: No Hx Cancer: No Hx Chemotherapy: No Hx Cirrhosis: No Hx Hemophilia: No Hx Hepatitis A: No Hx Hepatitis B: No Hx Hepatitis C: No Hx Metastesis: No Hx Shingles: No Hx Sickle Cell Disease: No Hx Unexplained Bleeding: No - INTEGUMENTARY Hx Dermatological Problems: No Hx Basil Cell: No Hx Eczema: No Hx Melanoma: No Hx Psoriasis: No Hx Squamous Cell: No - MUSCULOSKELETAL/RHEUMATOLOGICAL Hx Musculoskeletal Disorders: No Hx Arthritis: No Hx Back Pain: No Hx Degenerative Joint Disease: No Hx Falls: No Hx Fractures: No Hx Gout: No Hx Herniated Disk: No Hx Myasthenia Gravis: No Hx Osteoarthritis: No Hx Osteomyelitis: No Hx Osteoporosis: No Hx Rhabdomyolysis: No Hx Spinal Stenosis: No Hx Unsteady Gait: No - GASTROINTESTINAL Hx Gastrointestinal Disorders: No Hx Colostomy: No Hx Crohn's Disease: No Hx Diverticulitis: No Hx Gall Bladder Disease: No Hx Gastroesophageal Reflux: No Hx Ileostomy: No Hx Liver Failure: No Hx Pancreatitis: No HX Swallowing Problems: No - GENITOURINARY/GYNECOLOGICAL Hx Genitourinary Disorders: No Hx Hematuria: No Hx Incontinence: No Hx Sexually Transmitted Disorders: No Hx Urinary Tract Infection: No - PSYCHIATRIC Hx Psychophysiologic Disorder: No Hx Anxiety: Yes Hx Bipolar Disorder: Yes Hx Depression: Yes Hx Emotional Abuse: No Hx Hallucinations: No Hx Panic Symptoms: No Hx Post Traumatic Stress Disorder: No Hx Psychosis: No Hx Physical Abuse: No Hx Schizophrenia: Yes Hx Sexual Abuse: No Hx Substance Use: No - SURGICAL HISTORY Hx Amputation: No Hx Appendectomy: No Hx Cardiac Catheterization: No Hx Cholecystectomy: No Hx Coronary Stent: No Hx Gastric Bypass Surgery: No Hx Hysterectomy: No Hx Joint Replacement: No Hx Kidney Transplant: No Hx Liver Transplant: No Hx Mastectomy: No Hx Musculoskeletal Surgery: No Hx Open Heart Surgery: No Hx Orthopedic Surgery: No Hx Splenectomy: No Hx Valve Replacement: No - ANESTHESIA Hx Anesthesia: No Hx Anesthesia Reactions: No Hx Malignant Hyperthermia: No Meds Allergies/Adverse Reactions: Allergies Allergy/AdvReac Type Severity Reaction Status Date / Time strawberry Allergy Intermediate RASH Verified 10/18/18 20:51 divalproex sodium AdvReac RASH Verified 10/18/18 20:51 [From Depakote] Physical Exam - Constitutional Appears: Non-toxic, No Acute Distress - Head Exam Head Exam: ATRAUMATIC, NORMOCEPHALIC - Eye Exam Eye Exam: EOMI, Normal appearance, PERRL - ENT Exam ENT Exam: Mucous Membranes Moist - Respiratory Exam Respiratory Exam: Chest Wall Tenderness, Clear to Auscultation Bilateral, NORMAL BREATHING PATTERN. absent: Accessory Muscle Use, Rhonchi, Wheezes, Respiratory Distress - Cardiovascular Exam Cardiovascular Exam: REGULAR RHYTHM, +S1, +S2. absent: Tachycardia, Systolic Murmur - GI/Abdominal Exam GI & Abdominal Exam: Normal Bowel Sounds, Soft. absent: Distended, Firm, Guarding, Rebound, Rigid, Tenderness - Extremities Exam Extremities exam: Positive for: normal capillary refill, pedal pulses present. Negative for: pedal edema, tenderness - Neurological Exam Neurological exam: Alert, CN II-XII Intact, Oriented x3 - Psychiatric Exam Psychiatric exam: Normal Affect, Normal Mood - Skin Skin Exam: Dry, Intact, Warm Results - Vital Signs Recent Vital Signs: Last Vital Signs Temp Pulse 94 H 10/18/18 21:00 Resp 18 10/18/18 21:00 BP 127/75 10/18/18 21:00 Pulse Ox 95 10/18/18 21:00 - Labs Result Diagrams: 10/18/18 21:00 10/18/18 21:00 Labs: Laboratory Results - last 24 hr 10/18/18 10/18/18 10/18/18 21:00 21:00 21:00 WBC 8.5 RBC 5.01 Hgb 14.7 Hct 44.2 MCV 88.2 MCH 29.3 MCHC 33.3 RDW 13.3 Plt Count 284 MPV 10.1 Neut % (Auto) 64.0 Lymph % (Auto) 28.2 [place] % (Auto) 4.6 Eos % (Auto) 3.1 Baso % (Auto) 0.1 Lymph # (Auto) 2.4 [place] # (Auto) 0.4 Eos # (Auto) 0.3 Baso # (Auto) 0.01 Absolute Neuts (auto) 5.46 PT 11.5 INR 1.04 APTT 32.1 D-Dimer, Quantitative 236 Sodium 138 Potassium 4.3 Chloride 103 Carbon Dioxide 28 Anion Gap 12 BUN 15 Creatinine 0.7 Est GFR ( Amer) > 60 Est GFR (Non-Af Amer) > 60 Random Glucose 103 Calcium 9.4 Magnesium 1.9 Total Bilirubin 0.4 AST 40 H ALT 32 Alkaline Phosphatase 76 Lactate Dehydrogenase 506 Total Creatine Kinase 87 Troponin I < 0.01 Total Protein 8.7 H Albumin 4.6 Globulin 4.1 Albumin/Globulin Ratio 1.1 Triglycerides Cholesterol LDL Cholesterol Direct HDL Cholesterol Free T4 Urine Color Urine Appearance Urine pH Ur Specific Dawn Urine Protein Urine Glucose (UA) Urine Ketones Urine Blood Urine Nitrate Urine Bilirubin Urine Urobilinogen Ur Leukocyte Esterase Urine RBC Urine WBC Ur Epithelial Cells Urine HCG, Qual Urine Opiates Screen Urine Methadone Screen Ur Barbiturates Screen Ur Phencyclidine Scrn Ur Amphetamines Screen U Benzodiazepines Scrn U Oth Cocaine Metabols U Cannabinoids Screen 10/18/18 10/18/18 10/18/18 21:00 21:00 21:47 WBC RBC Hgb Hct MCV MCH MCHC RDW Plt Count MPV Neut % (Auto) Lymph % (Auto) [place] % (Auto) Eos % (Auto) Baso % (Auto) Lymph # (Auto) [place] # (Auto) Eos # (Auto) Baso # (Auto) Absolute Neuts (auto) PT INR APTT D-Dimer, Quantitative Sodium Potassium Chloride Carbon Dioxide Anion Gap BUN Creatinine Est GFR ( Amer) Est GFR (Non-Af Amer) Random Glucose Calcium Magnesium Total Bilirubin AST ALT Alkaline Phosphatase Lactate Dehydrogenase Total Creatine Kinase Troponin I Total Protein Albumin Globulin Albumin/Globulin Ratio Triglycerides 259 H Cholesterol 236 H LDL Cholesterol Direct 138 H HDL Cholesterol 36 Free T4 1.31 Urine Color Urine Appearance Urine pH Ur Specific Dawn Urine Protein Urine Glucose (UA) Urine Ketones Urine Blood Urine Nitrate Urine Bilirubin Urine Urobilinogen Ur Leukocyte Esterase Urine RBC Urine WBC Ur Epithelial Cells Urine HCG, Qual Urine Opiates Screen Negative Urine Methadone Screen Negative Ur Barbiturates Screen Negative Ur Phencyclidine Scrn Negative Ur Amphetamines Screen Negative U Benzodiazepines Scrn Negative U Oth Cocaine Metabols Positive H U Cannabinoids Screen Negative 10/18/18 21:47 WBC RBC Hgb Hct MCV MCH MCHC RDW Plt Count MPV Neut % (Auto) Lymph % (Auto) [place] % (Auto) Eos % (Auto) Baso % (Auto) Lymph # (Auto) [place] # (Auto) Eos # (Auto) Baso # (Auto) Absolute Neuts (auto) PT INR APTT D-Dimer, Quantitative Sodium Potassium Chloride Carbon Dioxide Anion Gap BUN Creatinine Est GFR ( Amer) Est GFR (Non-Af Amer) Random Glucose Calcium Magnesium Total Bilirubin AST ALT Alkaline Phosphatase Lactate Dehydrogenase Total Creatine Kinase Troponin I Total Protein Albumin Globulin Albumin/Globulin Ratio Triglycerides Cholesterol LDL Cholesterol Direct HDL Cholesterol Free T4 Urine Color Yellow Urine Appearance Clear Urine pH 6.0 Ur Specific Dawn >= 1.030 Urine Protein Trace H Urine Glucose (UA) Negative Urine Ketones Negative Urine Blood Negative Urine Nitrate Negative Urine Bilirubin Negative Urine Urobilinogen 0.2 Ur Leukocyte Esterase Negative Urine RBC None Urine WBC None Ur Epithelial Cells 1 - 3 Urine HCG, Qual Negative Urine Opiates Screen Urine Methadone Screen Ur Barbiturates Screen Ur Phencyclidine Scrn Ur Amphetamines Screen U Benzodiazepines Scrn U Oth Cocaine Metabols U Cannabinoids Screen Assessment & Plan - Assessment and Plan (Free Text) Assessment: Patient is a 32 year old female with past medical history of obesity, marijuana use, depression, anxiety presenting with chief complaint of chest pain Plan: Atypical chest pain - EKG unremarkable - Troponins Q6H - TSH - Lipid panel - Aspirin - Lipitor - Cardiology consulted Substance abuse - UDS positive for cocaine - avoid beta blockers - cessation counseling PPX - SCDs Case reviewed with Dr. Sydney Ernst PGY-1 <Sarahy Grimes - Last Filed: 10/19/18 19:32> Results - Vital Signs Recent Vital Signs: Last Vital Signs Temp 98.1 F 10/19/18 12:00 Pulse 78 10/19/18 14:00 Resp 19 10/19/18 12:00 BP 122/80 10/19/18 12:00 Pulse Ox 98 10/19/18 05:46 - Labs Result Diagrams: 10/19/18 07:00 10/19/18 07:00 Labs: Laboratory Results - last 24 hr 10/18/18 10/18/18 10/18/18 21:00 21:00 21:00 WBC 8.5 RBC 5.01 Hgb 14.7 Hct 44.2 MCV 88.2 MCH 29.3 MCHC 33.3 RDW 13.3 Plt Count 284 MPV 10.1 Neut % (Auto) 64.0 Lymph % (Auto) 28.2 [place] % (Auto) 4.6 Eos % (Auto) 3.1 Baso % (Auto) 0.1 Lymph # (Auto) 2.4 [place] # (Auto) 0.4 Eos # (Auto) 0.3 Baso # (Auto) 0.01 Absolute Neuts (auto) 5.46 PT 11.5 INR 1.04 APTT 32.1 D-Dimer, Quantitative 236 Sodium 138 Potassium 4.3 Chloride 103 Carbon Dioxide 28 Anion Gap 12 BUN 15 Creatinine 0.7 Est GFR ( Amer) > 60 Est GFR (Non-Af Amer) > 60 Random Glucose 103 Calcium 9.4 Phosphorus Magnesium 1.9 Total Bilirubin 0.4 AST 40 H ALT 32 Alkaline Phosphatase 76 Lactate Dehydrogenase 506 Total Creatine Kinase 87 Troponin I < 0.01 Total Protein 8.7 H Albumin 4.6 Globulin 4.1 Albumin/Globulin Ratio 1.1 Triglycerides Cholesterol LDL Cholesterol Direct HDL Cholesterol Free T4 TSH 3rd Generation Urine Color Urine Appearance Urine pH Ur Specific Dawn Urine Protein Urine Glucose (UA) Urine Ketones Urine Blood Urine Nitrate Urine Bilirubin Urine Urobilinogen Ur Leukocyte Esterase Urine RBC Urine WBC Ur Epithelial Cells Urine HCG, Qual Urine Opiates Screen Urine Methadone Screen Ur Barbiturates Screen Ur Phencyclidine Scrn Ur Amphetamines Screen U Benzodiazepines Scrn U Oth Cocaine Metabols U Cannabinoids Screen 10/18/18 10/18/18 10/18/18 21:00 21:00 21:47 WBC RBC Hgb Hct MCV MCH MCHC RDW Plt Count MPV Neut % (Auto) Lymph % (Auto) [place] % (Auto) Eos % (Auto) Baso % (Auto) Lymph # (Auto) [place] # (Auto) Eos # (Auto) Baso # (Auto) Absolute Neuts (auto) PT INR APTT D-Dimer, Quantitative Sodium Potassium Chloride Carbon Dioxide Anion Gap BUN Creatinine Est GFR ( Amer) Est GFR (Non-Af Amer) Random Glucose Calcium Phosphorus Magnesium Total Bilirubin AST ALT Alkaline Phosphatase Lactate Dehydrogenase Total Creatine Kinase Troponin I Total Protein Albumin Globulin Albumin/Globulin Ratio Triglycerides 259 H Cholesterol 236 H LDL Cholesterol Direct 138 H HDL Cholesterol 36 Free T4 1.31 TSH 3rd Generation 1.79 Urine Color Urine Appearance Urine pH Ur Specific Dawn Urine Protein Urine Glucose (UA) Urine Ketones Urine Blood Urine Nitrate Urine Bilirubin Urine Urobilinogen Ur Leukocyte Esterase Urine RBC Urine WBC Ur Epithelial Cells Urine HCG, Qual Urine Opiates Screen Negative Urine Methadone Screen Negative Ur Barbiturates Screen Negative Ur Phencyclidine Scrn Negative Ur Amphetamines Screen Negative U Benzodiazepines Scrn Negative U Oth Cocaine Metabols Positive H U Cannabinoids Screen Negative 10/18/18 10/19/18 10/19/18 21:47 03:00 07:00 WBC 7.8 RBC 4.53 Hgb 13.3 Hct 40.9 MCV 90.3 MCH 29.4 MCHC 32.5 RDW 13.6 Plt Count 242 MPV 9.9 Neut % (Auto) 56.2 Lymph % (Auto) 34.1 [place] % (Auto) 5.5 Eos % (Auto) 4.1 Baso % (Auto) 0.1 Lymph # (Auto) 2.7 [place] # (Auto) 0.4 Eos # (Auto) 0.3 Baso # (Auto) 0.01 Absolute Neuts (auto) 4.35 PT INR APTT D-Dimer, Quantitative Sodium Potassium Chloride Carbon Dioxide Anion Gap BUN Creatinine Est GFR ( Amer) Est GFR (Non-Af Amer) Random Glucose Calcium Phosphorus Magnesium Total Bilirubin AST ALT Alkaline Phosphatase Lactate Dehydrogenase 391 Total Creatine Kinase 67 Troponin I < 0.01 Total Protein Albumin Globulin Albumin/Globulin Ratio Triglycerides Cholesterol LDL Cholesterol Direct HDL Cholesterol Free T4 TSH 3rd Generation Urine Color Yellow Urine Appearance Clear Urine pH 6.0 Ur Specific Dawn >= 1.030 Urine Protein Trace H Urine Glucose (UA) Negative Urine Ketones Negative Urine Blood Negative Urine Nitrate Negative Urine Bilirubin Negative Urine Urobilinogen 0.2 Ur Leukocyte Esterase Negative Urine RBC None Urine WBC None Ur Epithelial Cells 1 - 3 Urine HCG, Qual Negative Urine Opiates Screen Urine Methadone Screen Ur Barbiturates Screen Ur Phencyclidine Scrn Ur Amphetamines Screen U Benzodiazepines Scrn U Oth Cocaine Metabols U Cannabinoids Screen 10/19/18 10/19/18 07:00 07:00 WBC RBC Hgb Hct MCV MCH MCHC RDW Plt Count MPV Neut % (Auto) Lymph % (Auto) [place] % (Auto) Eos % (Auto) Baso % (Auto) Lymph # (Auto) [place] # (Auto) Eos # (Auto) Baso # (Auto) Absolute Neuts (auto) PT INR APTT D-Dimer, Quantitative Sodium 141 Potassium 4.2 Chloride 105 Carbon Dioxide 27 Anion Gap 12 BUN 13 Creatinine 0.7 Est GFR ( Amer) > 60 Est GFR (Non-Af Amer) > 60 Random Glucose 90 Calcium 8.6 Phosphorus 3.9 Magnesium 2.1 Total Bilirubin 0.5 AST 33 ALT 24 Alkaline Phosphatase 57 Lactate Dehydrogenase 374 Total Creatine Kinase 60 Troponin I < 0.01 Total Protein 7.1 Albumin 3.6 Globulin 3.5 Albumin/Globulin Ratio 1.0 L Triglycerides Cholesterol LDL Cholesterol Direct HDL Cholesterol Free T4 TSH 3rd Generation Urine Color Urine Appearance Urine pH Ur Specific Dawn Urine Protein Urine Glucose (UA) Urine Ketones Urine Blood Urine Nitrate Urine Bilirubin Urine Urobilinogen Ur Leukocyte Esterase Urine RBC Urine WBC Ur Epithelial Cells Urine HCG, Qual Urine Opiates Screen Urine Methadone Screen Ur Barbiturates Screen Ur Phencyclidine Scrn Ur Amphetamines Screen U Benzodiazepines Scrn U Oth Cocaine Metabols U Cannabinoids Screen Attending/Attestation - Attestation I have personally seen and examined this patient.: Yes I have fully participated in the care of the patient.: Yes I have reviewed all pertinent clinical information: Yes Notes (Text): 10/19/18 19:31 Seen and examined. Discussed with resident. has a H/O DVT LLE. Pt. was told to F/U hematology for W/U. Pleuritic CP, but given strong FH of premature CAD, will observe overnight.
[2018-10-19 03:37] LABS: TROPONIN I < 0.01 ng/mL
[2018-10-19 07:35] LABS: BASO # 0.01 K/mm3 (0.0-2.0); BASO % 0.1 % (0.0-3.0); EOS # 0.3 (0.0-0.7); EOS % 4.1 % (1.5-5.0); HEMOGLOBIN 13.3 g/dL (12.0-16.0); LYMPH # 2.7 (1.2-3.4); LYMPH % 34.1 % (22.0-35.0); MEAN CELL VOLUME 90.3 fl (80.0-105.0); MEAN CORPUSCULAR HEMOGLOBIN 29.4 pg (25.0-35.0); MEAN CORPUSCULAR HGB CONC 32.5 g/dl (31.0-37.0); MEAN PLATELET VOLUME 9.9 fl (7.0-11.0); MONO # 0.4 (0.1-0.6); MONO % 5.5 % (1.0-6.0); RBC 4.53 10^6/uL (3.5-6.1); RED CELL DISTRIBUTION WIDTH 13.6 % (11.5-14.5); WHITE BLOOD COUNT 7.8 10^3/uL (4.5-11.0)
[2018-10-19 08:58] LABS: TROPONIN I < 0.01 ng/mL
[2018-10-19 09:05] LABS: ALBUMIN 3.6 g/dL (3.0-4.8); ALT/SGPT 24 U/L (7-56); AST/SGOT 33 U/L (14-36); BLOOD UREA NITROGEN 13 mg/dL (7-21); CALCIUM 8.6 mg/dL (8.4-10.5); GFR NON-AFRICAN AMERICAN > 60
--- NOTE | 2018-10-19 13:09 | RAD ---
Date of service: 10/18/2018 HISTORY: chest pain COMPARISON: 07/02/2015. FINDINGS: LUNGS: The lungs are well inflated and clear. PLEURA: No pleural effusions or pneumothorax. CARDIOVASCULAR: The heart is normal in size. No aortic atherosclerotic calcifications present. OSSEOUS STRUCTURES: Within normal limits for the patient's age. VISUALIZED UPPER ABDOMEN: Normal. OTHER FINDINGS: None. IMPRESSION: No active pulmonary disease.
--- NOTE | 2018-10-19 14:49 | CARD ---
APPROVED REPORT Date of service: 10/18/2018 EKG Measurement Heart [id number] <Conclusion> Normal sinus rhythm Normal ECG
--- NOTE | 2018-10-19 18:41 | CON ---
DATE OF CONSULTATION: 10/19/2018 REASON FOR CONSULTATION: Chest pain. HISTORY OF PRESENT ILLNESS: The patient is a 32-year-old female who is on disability because she has bipolar disorder, presented with chest pain after smoking pot. According to the patient, she was not aware of any cocaine abuse by her; however, the pot may have been lazed by cocaine as per the patient. The patient reported to standard chest tightness following that. The patient is unaware of any prior cardiac history. SOCIAL HISTORY: The patient is a smoker and occasional drinker. MEDICATIONS: Aspirin 81 mg once a day and Motrin 600 mg every 6 hours. REVIEW OF SYSTEMS: No nausea or vomiting. No dizziness or syncope. No fever or chills. PHYSICAL EXAMINATION: GENERAL: The patient is a middle-aged female who does not appear to be in acute distress. VITAL SIGNS: Blood pressure 122/80, heart rate 75, temperature 98.1, respirations 19. HEENT: Normocephalic. CHEST: Clear. HEART: S1 and S2, regular. EXTREMITIES: No edema. LABORATORY DATA: SMA-7 is entirely within normal limits today. CBC is entirely within normal limits. Three sets of troponins are negative. Triglycerides 269, total cholesterol 236, LDL cholesterol 138; these three are elevated. TSH level is within normal limits. PT/PTT, INR and D-dimer are within normal limits. EKG revealed normal sinus rhythm. ASSESSMENT: 1. Status post cocaine abuse. 2. Bipolar disorder. 3. Chest pain, myocardial infarction is ruled out. RECOMMENDATIONS: Continue aspirin 81 mg once a day. Start Imdur 30 mg once a day. Obtain an echocardiograph study. The case was discussed with the medical team. If the patient insists to leave before it was being done, then she can leave against medical advice. In the meantime from my interview with the patient, the patient is not depressed at this time and denies any suicidal ideations. Jacek Bennett MD
[2018-10-20 07:54] LABS: BASO # 0.02 K/mm3 (0.0-2.0); BASO % 0.3 % (0.0-3.0); EOS # 0.3 (0.0-0.7); EOS % 4.1 % (1.5-5.0); HEMOGLOBIN 13.5 g/dL (12.0-16.0); LYMPH # 2.4 (1.2-3.4); LYMPH % 29.9 % (22.0-35.0); MEAN CELL VOLUME 89.9 fl (80.0-105.0); MEAN CORPUSCULAR HEMOGLOBIN 29.1 pg (25.0-35.0); MEAN CORPUSCULAR HGB CONC 32.4 g/dl (31.0-37.0); MONO # 0.5 (0.1-0.6); MONO % 5.8 % (1.0-6.0); RBC 4.64 10^6/uL (3.5-6.1); RED CELL DISTRIBUTION WIDTH 13.4 % (11.5-14.5)
[2018-10-20 08:11] LABS: ALB/GLOB RATIO 1.1 (1.1-1.8); ALBUMIN 4.1 g/dL (3.0-4.8); ALT/SGPT 28 U/L (7-56); AST/SGOT 37 U/L (14-36); BLOOD UREA NITROGEN 11 mg/dL (7-21); CALCIUM 9.5 mg/dL (8.4-10.5); GFR NON-AFRICAN AMERICAN > 60
--- NOTE | 2018-10-20 11:07 | CP.PCM.PN ---
<Rolo Howe - Last Filed: 10/20/18 11:02> Subjective - Date & Time of Evaluation Date of Evaluation: 10/20/18 Time of Evaluation: 11:02 - Subjective Subjective: INTERNAL MEDICINE PROGRESS NOTE Rolo Howe PGY1 Pt seen and examined at bedside this am. No acute complaints this am. She denies any chest pain. She otherwise denies 12 point ROS Objective - Vital Signs/Intake and Output Vital Signs (last 24 hours): Temp Pulse Resp BP Pulse Ox 97.5 F L 77 18 100/68 97 10/20/18 05:47 10/20/18 05:47 10/20/18 05:47 10/20/18 05:47 10/20/18 05:47 Intake and Output: 10/20/18 10/20/18 06:59 18:59 Intake Total 240 Balance 240 - Medications Medications: Current Medications Acetaminophen (Tylenol 325mg Tab) 650 mg PO Q6H PRN PRN Reason: Pain, moderate (4-7) Aspirin (Ecotrin) 81 mg PO DAILY [facility] Last Admin: 10/20/18 09:36 Dose: 81 mg Atorvastatin Calcium (Lipitor) 40 mg PO DIN [facility] Last Admin: 10/19/18 18:12 Dose: 40 mg Ibuprofen (Motrin Tab) 600 mg PO Q6H PRN PRN Reason: Pain, Mild (1-3) Last Admin: 10/19/18 09:14 Dose: 600 mg Isosorbide Mononitrate (Imdur Er) 30 mg PO DAILY [facility] Last Admin: 10/20/18 09:36 Dose: 30 mg [place] Carbonate ([place] Carbonate 300mg) 300 mg PO BID [facility] Last Admin: 10/20/18 09:36 Dose: 300 mg - Labs Labs: 10/20/18 07:00 10/20/18 07:00 PT 11.5 SECONDS (9.4-12.5) 10/18/18 21:00 INR 1.04 10/18/18 21:00 APTT 32.1 Seconds (26.9-38.3) 10/18/18 21:00 - Constitutional Appears: Non-toxic, No Acute Distress - Head Exam Head Exam: ATRAUMATIC, NORMOCEPHALIC - Eye Exam Eye Exam: EOMI, Normal appearance, PERRL - ENT Exam ENT Exam: Mucous Membranes Moist - Respiratory Exam Respiratory Exam: Chest Wall Tenderness, Clear to Auscultation Bilateral, NORMAL BREATHING PATTERN. absent: Accessory Muscle Use, Rhonchi, Wheezes, Respiratory Distress - Cardiovascular Exam Cardiovascular Exam: REGULAR RHYTHM, +S1, +S2. absent: Tachycardia, Systolic Murmur - GI/Abdominal Exam GI & Abdominal Exam: Normal Bowel Sounds, Soft. absent: Distended, Firm, Guarding, Rebound, Rigid, Tenderness - Extremities Exam Extremities exam: Positive for: normal capillary refill, pedal pulses present. Negative for: pedal edema, tenderness - Neurological Exam Neurological exam: Alert, CN II-XII Intact, Oriented x3 - Psychiatric Exam Psychiatric exam: Normal Affect, Normal Mood - Skin Skin Exam: Dry, Intact, Warm Assessment and Plan - Assessment and Plan (Free Text) Assessment: Patient is a 32 year old female with past medical history of obesity, marijuana use, depression, anxiety presenting with chief complaint of chest pain after recently using marijuana that was likely contaminated with cocaine Plan: Atypical chest pain - likely secondary to cocaine use vs musculoskeletal as pain is reproducible to chest wall palpation - Per cardiology recs, awaiting echocardiogram. - EKG unremarkable - Troponins have been negativex 3 - TSH/FT4 wnl - Tri, Chol: 236, LDL: 138 HDL: 36. Low ELIAN/[place] score - continue aspirin, Lipitor, nitrate per cardiology recs - Cardiology consulted Substance abuse - UDS positive for cocaine - avoid beta blockers - cessation counseling Bipolar Disorder - Pt not showing signs of manic episode, depression or suicidal/homicidal ideations - Continue home lithium. Pt reports she only takes lithium. Pending medication reconciliation - f/u lithium level PPX - SCDs Case reviewed with Dr. Gavin Howe PGY1 <Ravinder Alonso - Last Filed: 10/20/18 12:04> Objective - Vital Signs/Intake and Output Vital Signs (last 24 hours): Temp Pulse Resp BP Pulse Ox 97.5 F L 68 18 100/68 97 10/20/18 05:47 10/20/18 10:00 10/20/18 05:47 10/20/18 05:47 10/20/18 05:47 Intake and Output: 10/20/18 10/20/18 06:59 18:59 Intake Total 240 Balance 240 - Medications Medications: Current Medications Acetaminophen (Tylenol 325mg Tab) 650 mg PO Q6H PRN PRN Reason: Pain, moderate (4-7) Aspirin (Ecotrin) 81 mg PO DAILY [facility] Last Admin: 10/20/18 09:36 Dose: 81 mg Atorvastatin Calcium (Lipitor) 40 mg PO DIN [facility] Last Admin: 10/19/18 18:12 Dose: 40 mg Ibuprofen (Motrin Tab) 600 mg PO Q6H PRN PRN Reason: Pain, Mild (1-3) Last Admin: 10/19/18 09:14 Dose: 600 mg Isosorbide Mononitrate (Imdur Er) 30 mg PO DAILY [facility] Last Admin: 10/20/18 09:36 Dose: 30 mg [place] Carbonate ([place] Carbonate 300mg) 300 mg PO BID [facility] Last Admin: 10/20/18 09:36 Dose: 300 mg - Labs Labs: 10/20/18 07:00 10/20/18 07:00 PT 11.5 SECONDS (9.4-12.5) 10/18/18 21:00 INR 1.04 10/18/18 21:00 APTT 32.1 Seconds (26.9-38.3) 10/18/18 21:00 Attending/Attestation - Attestation I have personally seen and examined this patient.: Yes I have fully participated in the care of the patient.: Yes I have reviewed all pertinent clinical information, including history, physical exam and plan: Yes Notes (Text): 10/20/18 12:02 Medical record note made by the resident after discussion with my direction and input after the patient was personally seen and examined by me. I have reviewed the chart and agree that the record accurately reflects by personal performance of the history, physical exam, data review, and medical decision-making, in the course for the patient. I have also personally directed the plan of care. 32 F with PMH of drug abuse,depression was admitted with chest pain, atypical ,Patient has chest wall tenderness, EKG is negative for acute ischemic changes.serial troponins are normal. Echo is pending. Cardiology evaluation noted. Issue of ongoing drug abuse was discussed in detail with patient. Management plan was discussed in detail with patient. Education was provided.
--- NOTE | 2018-10-20 21:52 | PN ---
DATE: 10/20/2018 SUBJECTIVE: The patient denies chest pain. PHYSICAL EXAMINATION: VITAL SIGNS: Blood pressure 100/68, heart rate 70, temperature 97.5, and respirations 18. HEENT: Normocephalic. CHEST: Clear. HEART: S1 and S2. Regular. EXTREMITIES: No edema. LABORATORY DATA: Today's CBC is entirely within normal limits. Today's SMA-7 is within normal limits. ASSESSMENT: 1. Chest pain, myocardial infarction was ruled out. 2. Status post cocaine abuse. 3. Hyperlipidemia. 4. Bipolar disorder. RECOMMENDATIONS: Continue aspirin 81 mg once a day, Imdur 30 mg once a day, Lipitor 40 mg once a day, lithium 300 mg twice a day. The patient is scheduled for an echocardiographic study tomorrow. Jacek Bennett MD
[2018-10-20 23:16] VITALS: RESP 18
[2018-10-21 06:11] VITALS: TEMP 97.7; O2SAT 95
[2018-10-21 07:11] LABS: BASO # 0.01 K/mm3 (0.0-2.0); BASO % 0.1 % (0.0-3.0); EOS # 0.3 (0.0-0.7); EOS % 3.3 % (1.5-5.0); HEMOGLOBIN 13.5 g/dL (12.0-16.0); LYMPH # 2.2 (1.2-3.4); MEAN CELL VOLUME 87.8 fl (80.0-105.0); MEAN CORPUSCULAR HEMOGLOBIN 29.4 pg (25.0-35.0); MEAN CORPUSCULAR HGB CONC 33.5 g/dl (31.0-37.0); MONO # 0.5 (0.1-0.6); MONO % 5.6 % (1.0-6.0); RBC 4.59 10^6/uL (3.5-6.1); RED CELL DISTRIBUTION WIDTH 13.4 % (11.5-14.5); WHITE BLOOD COUNT 9.2 10^3/uL (4.5-11.0)
[2018-10-21 07:29] LABS: ALB/GLOB RATIO 1.1 (1.1-1.8); ALBUMIN 4.1 g/dL (3.0-4.8); ALT/SGPT 19 U/L (7-56); AST/SGOT 34 U/L (14-36); BLOOD UREA NITROGEN 10 mg/dL (7-21); GFR NON-AFRICAN AMERICAN > 60
[2018-10-21 12:00] VITALS: BP 107/68
--- NOTE | 2018-10-21 13:45 | CP.PCM.DIS ---
<IsaiahOmid - Last Filed: 10/21/18 16:06> Provider - Provider Date of Admission: 10/20/18 12:00 Attending physician: Monica Mcnair MD Consults: 10/18/18 23:18 Cardiology Consult Routine Comment: Consulting Provider: Keny Kimball Consulting Physician: Keny Kimball Reason for Consult: chest pain Time Spent in preparation of Discharge (in minutes): 35 Hospital Course - Lab Results Lab Results: Most Recent Lab Values WBC 9.2 10^3/uL (4.5-11.0) 10/21/18 06:30 RBC 4.59 10^6/uL (3.5-6.1) 10/21/18 06:30 Hgb 13.5 g/dL (12.0-16.0) 10/21/18 06:30 Hct 40.3 % (36.0-48.0) 10/21/18 06:30 MCV 87.8 fl (80.0-105.0) 10/21/18 06:30 MCH 29.4 pg (25.0-35.0) 10/21/18 06:30 MCHC 33.5 g/dl (31.0-37.0) 10/21/18 06:30 RDW 13.4 % (11.5-14.5) 10/21/18 06:30 Plt Count 253 10^3/uL (120.0-450.0) 10/21/18 06:30 MPV 10.0 fl (7.0-11.0) 10/21/18 06:30 Neut % (Auto) 67.0 % (50.0-68.0) 10/21/18 06:30 Lymph % (Auto) 24.0 % (22.0-35.0) 10/21/18 06:30 [place] % (Auto) 5.6 % (1.0-6.0) 10/21/18 06:30 Eos % (Auto) 3.3 % (1.5-5.0) 10/21/18 06:30 Baso % (Auto) 0.1 % (0.0-3.0) 10/21/18 06:30 Lymph # (Auto) 2.2 (1.2-3.4) 10/21/18 06:30 [place] # (Auto) 0.5 (0.1-0.6) 10/21/18 06:30 Eos # (Auto) 0.3 (0.0-0.7) 10/21/18 06:30 Baso # (Auto) 0.01 K/mm3 (0.0-2.0) 10/21/18 06:30 Absolute Neuts (auto) 6.18 (1.4-6.5) 10/21/18 06:30 PT 11.5 SECONDS (9.4-12.5) 10/18/18 21:00 INR 1.04 10/18/18 21:00 APTT 32.1 Seconds (26.9-38.3) 10/18/18 21:00 D-Dimer, Quantitative 236 ng/mlDDU (0-243) 10/18/18 21:00 Sodium 137 mmol/L (132-148) 10/21/18 06:30 Potassium 3.9 mmol/L (3.6-5.0) 10/21/18 06:30 Chloride 100 mmol/L (98-107) 10/21/18 06:30 Carbon Dioxide 28 mmol/L (21-33) 10/21/18 06:30 Anion Gap 13 (10-20) 10/21/18 06:30 BUN 10 mg/dL (7-21) 10/21/18 06:30 Creatinine 0.7 mg/dl (0.7-1.2) 10/21/18 06:30 Est GFR ( Amer) > 60 10/21/18 06:30 Est GFR (Non-Af Amer) > 60 10/21/18 06:30 Random Glucose 78 mg/dL (70-110) 10/21/18 06:30 Calcium 9.0 mg/dL (8.4-10.5) 10/21/18 06:30 Phosphorus 3.9 mg/dL (2.5-4.5) 10/19/18 07:00 Magnesium 2.1 mg/dL (1.7-2.2) 10/19/18 07:00 Total Bilirubin 0.6 mg/dL (0.2-1.3) 10/21/18 06:30 AST 34 U/L (14-36) 10/21/18 06:30 ALT 19 U/L (7-56) 10/21/18 06:30 Alkaline Phosphatase 63 U/L (38-126) 10/21/18 06:30 Lactate Dehydrogenase 374 U/L (333-699) 10/19/18 07:00 Total Creatine Kinase 60 U/L (35-230) 10/19/18 07:00 Troponin I < 0.01 ng/mL 10/19/18 07:00 Total Protein 7.7 g/dL (5.8-8.3) 10/21/18 06:30 Albumin 4.1 g/dL (3.0-4.8) 10/21/18 06:30 Globulin 3.7 gm/dL 10/21/18 06:30 Albumin/Globulin Ratio 1.1 (1.1-1.8) 10/21/18 06:30 Triglycerides 259 mg/dL (35-160) H 10/18/18 21:00 Cholesterol 236 mg/dL (130-200) H 10/18/18 21:00 LDL Cholesterol Direct 138 mg/dL (0-129) H 10/18/18 21:00 HDL Cholesterol 36 mg/dL (29-60) 10/18/18 21:00 Free T4 1.31 ng/dL (0.78-2.19) 10/18/18 21:00 TSH 3rd Generation 1.79 mIU/mL (0.46-4.68) 10/18/18 21:00 Urine Color Yellow (YELLOW) 10/18/18 21:47 Urine Appearance Clear (CLEAR) 10/18/18 21:47 Urine pH 6.0 (4.7-8.0) 10/18/18 21:47 Ur Specific [place] >= 1.030 (1.005-1.035) 10/18/18 21:47 Urine Protein Trace mg/dL (<30 mg/dL) H 10/18/18 21:47 Urine Glucose (UA) Negative mg/dL (NEGATIVE) 10/18/18 21:47 Urine Ketones Negative mg/dL (NEGATIVE) 10/18/18 21:47 Urine Blood Negative (NEGATIVE) 10/18/18 21:47 Urine Nitrate Negative (NEGATIVE) 10/18/18 21:47 Urine Bilirubin Negative (NEGATIVE) 10/18/18 21:47 Urine Urobilinogen 0.2 E.U./dL (<1 E.U./dL) 10/18/18 21:47 Ur Leukocyte Esterase Negative Nelli/uL (NEGATIVE) 10/18/18 21:47 Urine RBC None /hpf (0-2) 10/18/18 21:47 Urine WBC None /hpf (0-6) 10/18/18 21:47 Ur Epithelial Cells 1 - 3 /hpf (0-5) 10/18/18 21:47 Urine HCG, Qual Negative (NEGATIVE) 10/18/18 21:47 Urine Opiates Screen Negative (NEGATIVE) 10/18/18 21:47 Urine Methadone Screen Negative (NEGATIVE) 10/18/18 21:47 Ur Barbiturates Screen Negative (NEGATIVE) 10/18/18 21:47 Ur Phencyclidine Scrn Negative (NEGATIVE) 10/18/18 21:47 Ur Amphetamines Screen Negative (NEGATIVE) 10/18/18 21:47 U Benzodiazepines Scrn Negative (NEGATIVE) 10/18/18 21:47 Belt < 0.2 mmol/L (0.5-1.3) L 10/20/18 07:00 U Oth Cocaine Metabols Positive (NEGATIVE) H 10/18/18 21:47 U Cannabinoids Screen Negative (NEGATIVE) 10/18/18 21:47 - Hospital Course Hospital Course: Omid Colon, PGY1 Discharge Summary for Dr. Mcnair Patient is a 32 year old female with PMHx of obesity, marijuana use, depression, anxiety, and bipolar disorder who presented to the ED on 10/18 with chest pain s/p smoking marijuana that was laced with cocaine. Chest pain is located in mid anterior chest wall, described as a heavy pressure like sensation associated with shortness of breath. Patient admitted for cp - r/o ACS. [employer] was consulted. Troponins were negative x3. No acute ST or T wave changes on EKG. Patient did have elevated LDL and cholesterol levels. Utox was positive for cocaine. Echo was also ordered by cardiology given cocaine use. During hospital course, patient's chest pain improved. Home meds were also reconciled and it was confirmed that there were no home medications causing the symptoms that she is experiencing. Patient claims to only take her lithium home med. She was educated extensively on cessation of substance abuse. Patient's chest pain is likely related to cocaine use. She does not endorse any symptoms at this time. Given her low cardiac risk factors, patient does not require further workup for ACS or ischemia as per cardiology. Echo was also read as a normal study. Per cardio, patient started on aspirin 81mg daily and Lipitor 40mg HS. Given the findings and the resolution of patient's symptoms, patient is hemodynamically stable for discharge. She will follow up with her PMD upon discharge to home. She was educated on cessation of cocaine and marijuana. She will resume her home meds and is being given a 2 week supply of aspirin and lipitor. Discharge Exam - Head Exam Head Exam: ATRAUMATIC, NORMAL INSPECTION, NORMOCEPHALIC - Eye Exam Eye Exam: Normal appearance Pupil Exam: NORMAL ACCOMODATION - Respiratory Exam Respiratory Exam: Clear to PA & Lateral. absent: Chest Wall Tenderness, Rales, Rhonchi, Wheezes - Cardiovascular Exam Cardiovascular Exam: RRR, +S1, +S2 - GI/Abdominal Exam GI & Abdominal Exam: Normal Bowel Sounds. absent: Distended, Firm, Guarding, Rebound, Rigid, Tenderness - Extremities Exam Extremities exam: normal capillary refill, normal inspection, pedal pulses present - Back Exam Back exam: NORMAL INSPECTION - Neurological Exam Neurological exam: Alert, CN II-XII Intact, Normal Gait, Oriented x3 - Psychiatric Exam Psychiatric exam: Normal Affect, Normal Mood - Skin Skin Exam: Dry, Intact, Normal Color, Warm Discharge Plan - Discharge Medications Prescriptions: Aspirin [Ecotrin] 81 mg PO DAILY #14 tabec Atorvastatin [Lipitor] 40 mg PO DIN #14 tab - Follow Up Plan Condition: STABLE Disposition: HOME/ ROUTINE Instructions: Chest Pain That Is Not Caused by the Heart (DC), Chest Pain (DC), Marijuana Use and Addiction (DC) Additional Instructions: Please follow up with your primary medical doctor Dr. Ingrid Polanco within 3-5 days of discharge from the hospital. Please discuss your hospital stay and home medications with your physician. You may resume your home medications as prescribed. You are being prescribed two new medications: Aspirin 81 mg daily and Lipitor 40mg at night. Please take as prescribed. Please refrain from ALL illicit drugs, including marijuana and cocaine Continue to follow up with [facility] at [facility] Return to the nearest emergency room if your symptoms return or worsen Referrals: Ingrid Polanco MD [Family Provider] - <Monica Mcnair - Last Filed: 10/21/18 16:37> Provider - Provider Date of Admission: 10/20/18 12:00 Attending physician: Monica Mcnair MD Consults: 10/18/18 23:18 Cardiology Consult Routine Comment: Consulting Provider: Keny Kimball Consulting Physician: Keny Kimball Reason for Consult: chest pain Hospital Course - Lab Results Lab Results: Most Recent Lab Values WBC 9.2 10^3/uL (4.5-11.0) 10/21/18 06:30 RBC 4.59 10^6/uL (3.5-6.1) 10/21/18 06:30 Hgb 13.5 g/dL (12.0-16.0) 10/21/18 06:30 Hct 40.3 % (36.0-48.0) 10/21/18 06:30 MCV 87.8 fl (80.0-105.0) 10/21/18 06:30 MCH 29.4 pg (25.0-35.0) 10/21/18 06:30 MCHC 33.5 g/dl (31.0-37.0) 10/21/18 06:30 RDW 13.4 % (11.5-14.5) 10/21/18 06:30 Plt Count 253 10^3/uL (120.0-450.0) 10/21/18 06:30 MPV 10.0 fl (7.0-11.0) 10/21/18 06:30 Neut % (Auto) 67.0 % (50.0-68.0) 10/21/18 06:30 Lymph % (Auto) 24.0 % (22.0-35.0) 10/21/18 06:30 [place] % (Auto) 5.6 % (1.0-6.0) 10/21/18 06:30 Eos % (Auto) 3.3 % (1.5-5.0) 10/21/18 06:30 Baso % (Auto) 0.1 % (0.0-3.0) 10/21/18 06:30 Lymph # (Auto) 2.2 (1.2-3.4) 10/21/18 06:30 [place] # (Auto) 0.5 (0.1-0.6) 10/21/18 06:30 Eos # (Auto) 0.3 (0.0-0.7) 10/21/18 06:30 Baso # (Auto) 0.01 K/mm3 (0.0-2.0) 10/21/18 06:30 Absolute Neuts (auto) 6.18 (1.4-6.5) 10/21/18 06:30 PT 11.5 SECONDS (9.4-12.5) 10/18/18 21:00 INR 1.04 10/18/18 21:00 APTT 32.1 Seconds (26.9-38.3) 10/18/18 21:00 D-Dimer, Quantitative 236 ng/mlDDU (0-243) 10/18/18 21:00 Sodium 137 mmol/L (132-148) 10/21/18 06:30 Potassium 3.9 mmol/L (3.6-5.0) 10/21/18 06:30 Chloride 100 mmol/L (98-107) 10/21/18 06:30 Carbon Dioxide 28 mmol/L (21-33) 10/21/18 06:30 Anion Gap 13 (10-20) 10/21/18 06:30 BUN 10 mg/dL (7-21) 10/21/18 06:30 Creatinine 0.7 mg/dl (0.7-1.2) 10/21/18 06:30 Est GFR ( Amer) > 60 10/21/18 06:30 Est GFR (Non-Af Amer) > 60 10/21/18 06:30 Random Glucose 78 mg/dL (70-110) 10/21/18 06:30 Calcium 9.0 mg/dL (8.4-10.5) 10/21/18 06:30 Phosphorus 3.9 mg/dL (2.5-4.5) 10/19/18 07:00 Magnesium 2.1 mg/dL (1.7-2.2) 10/19/18 07:00 Total Bilirubin 0.6 mg/dL (0.2-1.3) 10/21/18 06:30 AST 34 U/L (14-36) 10/21/18 06:30 ALT 19 U/L (7-56) 10/21/18 06:30 Alkaline Phosphatase 63 U/L (38-126) 10/21/18 06:30 Lactate Dehydrogenase 374 U/L (333-699) 10/19/18 07:00 Total Creatine Kinase 60 U/L (35-230) 10/19/18 07:00 Troponin I < 0.01 ng/mL 10/19/18 07:00 Total Protein 7.7 g/dL (5.8-8.3) 10/21/18 06:30 Albumin 4.1 g/dL (3.0-4.8) 10/21/18 06:30 Globulin 3.7 gm/dL 10/21/18 06:30 Albumin/Globulin Ratio 1.1 (1.1-1.8) 10/21/18 06:30 Triglycerides 259 mg/dL (35-160) H 10/18/18 21:00 Cholesterol 236 mg/dL (130-200) H 10/18/18 21:00 LDL Cholesterol Direct 138 mg/dL (0-129) H 10/18/18 21:00 HDL Cholesterol 36 mg/dL (29-60) 10/18/18 21:00 Free T4 1.31 ng/dL (0.78-2.19) 10/18/18 21:00 TSH 3rd Generation 1.79 mIU/mL (0.46-4.68) 10/18/18 21:00 Urine Color Yellow (YELLOW) 10/18/18 21:47 Urine Appearance Clear (CLEAR) 10/18/18 21:47 Urine pH 6.0 (4.7-8.0) 10/18/18 21:47 Ur Specific [place] >= 1.030 (1.005-1.035) 10/18/18 21:47 Urine Protein Trace mg/dL (<30 mg/dL) H 10/18/18 21:47 Urine Glucose (UA) Negative mg/dL (NEGATIVE) 10/18/18 21:47 Urine Ketones Negative mg/dL (NEGATIVE) 10/18/18 21:47 Urine Blood Negative (NEGATIVE) 10/18/18 21:47 Urine Nitrate Negative (NEGATIVE) 10/18/18 21:47 Urine Bilirubin Negative (NEGATIVE) 10/18/18 21:47 Urine Urobilinogen 0.2 E.U./dL (<1 E.U./dL) 10/18/18 21:47 Ur Leukocyte Esterase Negative Nelli/uL (NEGATIVE) 10/18/18 21:47 Urine RBC None /hpf (0-2) 10/18/18 21:47 Urine WBC None /hpf (0-6) 10/18/18 21:47 Ur Epithelial Cells 1 - 3 /hpf (0-5) 10/18/18 21:47 Urine HCG, Qual Negative (NEGATIVE) 10/18/18 21:47 Urine Opiates Screen Negative (NEGATIVE) 10/18/18 21:47 Urine Methadone Screen Negative (NEGATIVE) 10/18/18 21:47 Ur Barbiturates Screen Negative (NEGATIVE) 10/18/18 21:47 Ur Phencyclidine Scrn Negative (NEGATIVE) 10/18/18 21:47 Ur Amphetamines Screen Negative (NEGATIVE) 10/18/18 21:47 U Benzodiazepines Scrn Negative (NEGATIVE) 10/18/18 21:47 Belt < 0.2 mmol/L (0.5-1.3) L 10/20/18 07:00 U Oth Cocaine Metabols Positive (NEGATIVE) H 10/18/18 21:47 U Cannabinoids Screen Negative (NEGATIVE) 10/18/18 21:47 Attending/Attestation - Attestation I have personally seen and examined this patient.: Yes I have fully participated in the care of the patient.: Yes I have reviewed all pertinent clinical information, including history, physical exam and plan: Yes Notes (Text): 10/21/18 16:32 32 year old female with past medical history of bipolar disorder and substance abuse (cocaine, marijuana) who presented with complaint of chest pain. Serial cardiac enzymes were negative and ACS was ruled out. She was seen by cardiology who ordered for echocardiogram which was reviewed. Patient was counselled on risks of continued substance abuse. Patient is discharged home to follow up with pmd. Follow up with [facility] clinic. Counselled on risks of continued substance abuse. Counselled on weight loss, diet and lifestyle modifications. Started on statin for dyslipidemia. Monica Mcnair MD Hospitalist.
--- NOTE | 2018-10-21 15:52 | CARD ---
APPROVED REPORT Date of service: 10/21/2018 EXAM: Two-dimensional and M-mode echocardiogram with Doppler and color Doppler. INDICATION Chest Pain 2D DIMENSIONS Left Atrium (2D)2.9 (1.6-4.0cm)IVSd1.0 (0.7-1.1cm) LVDd4.0 (3.9-5.9cm)PWd1.0 (0.7-1.1cm) LVDs2.8 (2.5-4.0cm)FS (%) 31.3 % LVEF (%)59.7 (>50%) M-Mode DIMENSIONS Aortic Root2.60 (2.2-3.7cm)Aortic Cusp Exc.1.70 (1.5-2.0cm) Aortic Valve AoV Peak Qwjfyjjb040.0cm/Jonnathan Peak GR.6mmHg Mitral Valve MV E Ecstpwbz21.5cm/sMV A Mqyxlfki79.6cm/sE/A ratio1.0 TDI Lateral E' Peak V14.10cm/sMedial E' Peak V6.53cm/sE/Lateral E'5.4 E/Medial E'11.6 Pulmonary Valve PV Peak Hnqggirg10.1cm/sPV Peak Grad.2mmHg LEFT VENTRICLE The left ventricle is normal size. There is normal left ventricular wall thickness. The left ventricular function is normal. The left ventricular ejection fraction is within the normal range. There is normal LV segmental wall motion. The left ventricular diastolic function is normal. RIGHT VENTRICLE The right ventricle is normal size. There is normal right ventricular wall thickness. The right ventricular systolic function is normal. ATRIA The left atrium size is normal. The right atrium size is normal. AORTIC VALVE The aortic valve is normal in structure. No aortic regurgitation is present. There is no aortic valvular stenosis. MITRAL VALVE The mitral valve is normal in structure. There is no mitral valve regurgitation noted. There is no mitral valve stenosis. TRICUSPID VALVE The tricuspid valve is normal in structure. There is no tricuspid valve regurgitation noted. There is no tricuspid valve stenosis. PULMONIC VALVE The pulmonary valve is normal in structure. There is no pulmonic valvular regurgitation. GREAT VESSELS The aortic root is normal in size. The IVC is normal in size and collapses >50% with inspiration. <Conclusion> The left ventricle is normal size. There is normal left ventricular wall thickness. The left ventricular function is normal. The left ventricular ejection fraction is within the normal range. There is normal LV segmental wall motion. The left ventricular diastolic function is normal.
[2018-10-21 17:03] VITALS: PULSE 75
--- NOTE | 2018-10-21 18:09 | PN ---
DATE: 10/21/2018 CARDIOLOGY FOLLOWUP SUBJECTIVE: The patient is without chest pain for few days. PHYSICAL EXAMINATION VITAL SIGNS: Stable. NECK: Negative JVD. LUNGS: Without rales. HEART: S1 and S2. EXTREMITIES: Without edema. LABORATORY DATA: Her troponins are negative. EKG is unremarkable. IMPRESSION 1. Atypical chest pain, which is now resolved. 2. No evidence for acute coronary syndrome. 3. History of cocaine abuse. 4. Hyperlipidemia. 5. History of bipolar disease. PLAN: Given these findings, there is no evidence for acute coronary syndrome. I have discussed with the patient about her need to stop drug use and abuse. She seems to understand. No further cardiac workup is necessary. We will discontinue her Imdur. Keny Kimball MD
== END 2018-10-21 17:53 | disposition home or self-care (01) | DRG 143 ==
LOC: ED 20:44 → ERH 22:53 → 2RNO 10-19 00:42 → OBSVTOIN 10-20 12:00
PROVIDERS: ADMIT Internal Medicine; ATTEND Internal Medicine
DX: R07.89 Other chest pain (principal); F14.90 Cocaine use, unspecified, uncomplicated; F20.9 Schizophrenia, unspecified; F12.90 Cannabis use, unspecified, uncomplicated; E78.5 Hyperlipidemia, unspecified; F31.9 Bipolar disorder, unspecified; F17.200 Nicotine dependence, unspecified, uncomplicated; Z82.49 Family history of ischemic heart disease and other diseases of the circulatory system; Z88.8 Allergy status to other drugs, medicaments and biological substances; Z91.018 Allergy to other foods; E66.9 Obesity, unspecified; Z68.36 Body mass index [BMI] 36.0-36.9, adult; F41.9 Anxiety disorder, unspecified